=== PATIENT | female | born 2000 | race African-American/Black ===

== ENCOUNTER 2021-12-28 17:05 | Emergency (ER) | payer OTHER ==
[~2021-12-28] VITALS: Ht 160 cm; Wt 68.0 kg
[2021-12-28 17:05] VITALS: TEMP 98
[2021-12-28 18:34] VITALS: BP 117/68
== END 2021-12-28 18:35 | disposition home or self-care (01) ==
LOC: ED 17:05
DX: F43.22 Adjustment disorder with anxiety (principal)
CPT/HCPCS: 99282